=== PATIENT | male | born 1990 | race African-American/Black ===

== ENCOUNTER 2023-05-19 18:12 | Emergency (ER) | payer BC, MEDICAID, SELFPAY ==
[2023-05-19 18:14] VITALS: BP 158/113; PULSE 74; RESP 18; TEMP 36.6; O2SAT 98; BMI 26.8
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
--- NOTE | 2023-05-19 18:50 | RAD_ITS ---
INDICATION: Trauma, left foot injury with pain and bruising base of second and third digits EXAMINATION/TECHNIQUE: X-RAY - LEFT XR Foot Min 3 Views 3 VIEWS COMPARISON: None. FINDINGS: SOFT TISSUES: No soft tissue swelling or gas. No radiopaque foreign body. BONES/JOINTS: No acute fracture. Joint spaces anatomically aligned. No sclerotic or destructive changes observed. RAD/Foot min 3 Views IMPRESSION: No acute bony injury. Electronically Signed: Holger Hartley MD at 20:02 EDT ,
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
== END 2023-05-19 19:22 | disposition home or self-care (01) ==
PROVIDERS: Emergency Provider Emergency Medicine; Visit Provider Emergency Medicine
DX: S90.32XA Contusion of left foot, initial encounter (principal); S60.221A Contusion of right hand, initial encounter; S90.02XA Contusion of left ankle, initial encounter; F17.210 Nicotine dependence, cigarettes, uncomplicated; F12.90 Cannabis use, unspecified, uncomplicated; Y04.8XXA Assault by other bodily force, initial encounter
CPT/HCPCS: 73130; 73610; 73630; 99282